=== PATIENT | male | born 2000 | race African-American/Black ===

== ENCOUNTER 2020-12-21 16:48 | Emergency (ER) | payer OTHER ==
[~2020-12-21] VITALS: Ht 170.2 cm; Wt 77.1 kg
[2020-12-21] MEDS ORDERED: NAPROSYN500 MG PO (18:33)
[2020-12-21] MEDS ORDERED: TYLENOL325 M1 PO (18:33)
[2020-12-21 18:44] VITALS: BP 126/75
== END 2020-12-21 18:45 | disposition still patient (30) ==
LOC: ER 16:48
DX: S60.312A Abrasion of left thumb, initial encounter (principal); S60.415A Abrasion of left ring finger, initial encounter; S30.810A Abrasion of lower back and pelvis, initial encounter; R51.9 Headache, unspecified; T14.8XXA Other injury of unspecified body region, initial encounter; V49.9XXA Car occupant (driver) (passenger) injured in unspecified traffic accident, initial encounter; Y93.89 Activity, other specified; Y92.410 Unspecified street and highway as the place of occurrence of the external cause; Y99.8 Other external cause status